=== PATIENT | female | born 1965 | race African-American/Black ===

== ENCOUNTER 2017-07-23 13:16 | Emergency (ER) | payer OTHER ==
[~2017-07-23] VITALS: Ht 160 cm; Wt 73.4 kg
[~2017-07-23 13:16] MED LIST: ABILIFY1 MG/1 ML PO; AMLODIPINE BESYL5 MG PO; ASPIR-LOW81 MG PO; BUPROPION HYDROC1 GM MC; CLEOCIN300 MG PO; FLEXERIL10 MG PO; FORTAMET500 MG PO; NAPROSYN500 MG PO; PERCOCET 10-321 EACH PO; TRAMADOL HCL50 MG PO; ZESTRIL,PRINIVIL5 MG PO; ZOCOR5 MG PO
[2017-07-23 13:36] LABS: HEMATOCRIT 45.6 % (36.0-46.0); HEMOGLOBIN 15.3 G/DL (11.9-15.5); MCH 29.2 PG (29.0-34.0); MCHC 33.6 G/DL (30.0-36.0); PLATELET COUNT 262 K/uL (156-360); RBC DIS.WIDTH-CV 13.5 % (11.8-14.6); RBC DIS.WIDTH-SD 43.5 % (39-53); RED BLOOD COUNT 5.24 M/uL (3.80-5.20); WHITE BLOOD COUNT 7.8 K/uL (4.1-10.2)
[2017-07-23 13:47] LABS: CHLORIDE 102 mEq/L (99-109); POTASSIUM 4.1 mEq/L (3.7-5.4); SODIUM 138 mEq/L (136-147)
[2017-07-23 13:48] LABS: GLUCOSE 169 mg/dL (70-99)
[2017-07-23 13:52] LABS: CREATININE 0.9 mg/dL (0.6-1.3); GFR ESTIMATE (CALCULATED) > 59 mL/min/
[2017-07-23 13:53] LABS: UREA NITROGEN (BUN) 18 mg/dL (9-23)
[2017-07-23 13:58] LABS: TROP-I INTERPRETATION NEGATIVE; TROPONIN-I < 0.01 ng/mL (0.0-0.30)
[2017-07-23 15:42] VITALS: BP 132/86
== END 2017-07-23 16:15 | disposition home or self-care (01) ==
LOC: EME 13:16
PROVIDERS: Emergency Medicine
DX: M94.0 Chondrocostal junction syndrome [Tietze] (principal); I10 Essential (primary) hypertension; E78.5 Hyperlipidemia, unspecified; E11.9 Type 2 diabetes mellitus without complications; F32.9 Major depressive disorder, single episode, unspecified; F17.200 Nicotine dependence, unspecified, uncomplicated; Z79.82 Long term (current) use of aspirin
CPT/HCPCS: 71046; 80048; 84484; 85027; 93005; 99281; 99283; J1885